=== PATIENT | male | born 1970 | race Caucasian/White ===

== ENCOUNTER 2022-05-08 14:33 | Emergency (ER) | payer OTHER, SELFPAY ==
[2022-05-08 14:48] VITALS: BP 120/69; PULSE 86; O2SAT 95
--- NOTE | 2022-05-08 14:58 | ED.WOUNDLAC ---
HPI - Wound/Laceration General Chief Complaint: General Medical Stated Complaint: [facility] HOME ?'S SKIN INF FROM SELF INFLICTED SCRATCH Time Seen by Provider: 05/08/22 14:48 Source: patient and EMS Mode of arrival: EMS Limitations: no limitations History of Present Illness HPI narrative: 51-year-old male with a history of diabetes, schizoaffective disorder presents with wounds to the right groin and neck. Per report patient often scratches himself in the affected sites. He completed a course of antibiotics on month ago for the same wounds but has continued to scratch at them and staff is worried that maybe infected again. There are no reports of fevers, chills, nausea, vomiting. Related Data Previous Rx's Medication Instructions Recorded diphenhydramine HCl 25 mg capsule 25 mg PO TID PRN itching #30 caps 05/08/22 (Benadryl) doxycycline monohydrate 100 mg 100 mg PO BID #20 tabs 05/08/22 tablet mupirocin 2 % topical ointment 1 appl topical TID #22 grams 05/08/22 Allergies Allergy/AdvReac Type Severity Reaction Status Date / Time lithium Allergy Mild Unknown Verified 05/08/22 14:55 Review of Systems Review of Systems: Yes all other systems are reviewed and are negative Constitutional: Constitutional: Reports no additional constitutional complaints, Denies body ache(s), Denies chills, Denies fever(s), Denies headache(s) and Denies weakness Eyes: Eyes: Reports no additional eye complaints and Denies change in vision ENT: Reports system reviewed and no additional complaints, except as documented, Denies dizziness, Denies headache(s), Denies nasal congestion, Denies nasal discharge and Denies neck pain Cardiovascular: Cardiovascular: Reports no additional cardiovascular complaints, Denies chest pain, Denies leg edema and Denies dyspnea Respiratory: Respiratory: Reports no additional respiratory complaints, Denies cough and Denies dyspnea Gastrointestinal: Gastrointestinal: Reports no additional gastrointestinal complaints, Denies abdominal pain, Denies diarrhea, Denies nausea and Denies vomiting Genitourinary: Genitourinary: Denies urinary incontinence Musculoskeletal: Musculoskeletal: Reports no additional musculoskeletal complaints, Denies back pain, Denies arthralgias, Denies joint swelling, Denies neck pain, Denies numbness and Denies tingling Integumentary/Breasts: Skin/Breast: Reports system reviewed and no additional complaints, except as docu, Reports swelling, Reports erythema, Denies rash and Reports wounds Neurologic: Reports system reviewed and no additional complaints, except as documented, Denies Abnormal speech present, Denies dizziness, Denies headache(s), Denies numbness, Denies tingling and Denies weakness PMFSH Past Medical History Attestation statement: The following information was validated with the patient. Source: old records reviewed and nursing notes reviewed Medical History (Updated 05/08/22 @ 15:09 by Xuan Carreon) Diabetes Orthostatic hypotension Schizoaffective disorder Social History Social History Patient Tobacco Use Status: Current everyday Tobacco user Use of substances other than those prescribed or required for medical reasons: No Advance Directives: No Advance Directives Information Provided: No Physical Exam Vital Signs: Vital Signs: Last Vital Signs Temp 98.3 F 05/08/22 15:03 Pulse 89 05/08/22 15:03 Resp 20 05/08/22 15:03 BP 120/73 05/08/22 15:03 Pulse Ox 97 05/08/22 15:03 O2 Del Method 05/08/22 15:03 BMI result Body Mass Index 28.7 Const: General: cooperative, healthy appearing, comfortable and no acute distress Orientation/consciousness: patient oriented x3 Limitations: no limitations HEENT: Head: Yes normal to inspection Ears: hearing grossly normal bilaterally General nose exam: Normal external nose present Face and sinus: Yes normal facial exam Mouth: Normal oral and palatal mucosa present Throat: Yes posterior oropharynx normal Eyes: General: appearance normal, both eyes and all related structures Pupils: Equal, round and reactive pupils present Neck: Other: Neck: Yes normal visual inspection Chest: Chest palpation & inspection: normal inspection of the chest Resp: Effort & Inspection: normal respiratory effort Auscultation: clear to auscultation bilaterally Cardio: Rate: regular rate Rhythm: regular rhythm Peripheral pulses: Peripheral pulses 2+ throughout GI: Inspection: Yes normal to inspection Palpation (GI): Soft to palpation and nontender Auscultation: normal bowel sounds Back/Spine/Pelvis: Thoracic/Lumbar Spine: thoracic and lumbar spine normal to inspection Skin: General skin exam: no rashes or lesions noted Neuro: General: patient oriented x3, no focal motor deficits and normal sensation to monofilament Cranial nerves: Yes Equal, round and reactive pupils present Cognition (Neuro): normal cognition Speech: No Abnormal speech present Gait exam (Neuro): Normal gait present Motor exam (neuro): 5/5 motor strength present throughout Extrem: Other: No deeper palpable abscess, induration or fluctuance. No surrounding lymphadenopathy General: Yes normal to inspection Course Course Course Narrative: Our special education case manager informed me that staff at the detention wanted to speak to me about the patient. I called and spoke to Nora the [facility] nurse in addition to one of the other nurses on speaker phone. She tells me the patient has been with the detention for approximately 2 months. He has had 2 admissions 1 medical to [facility] from hypotension. His hypotension was thought to be secondary to risperidone and so this was discontinued. They started him on midodrine and salt tablets which she has been taking. It was recommended the patient have blood pressure checks 3 times weekly he has been refusing this. He is also diabetic. They patient is supposed to point a care checks 3 times weekly with his also been refusing this. She reports the patient has had these wounds on his neck for about 1 month. Today the patient became quite agitated yelling for hydrogen peroxide for a wound on his right thigh. The patient then pulled down his pants and exposed himself to staff showing his wound. They tell me the patient scratches at his wounds until they bleed. They are concerned because he smears blood around the detention. He refuses to keep his dressings in place. He also refuses wound care. They are asking for assistance because they are unsure how to help the patient. I will involve our CARE team. Nora can be reached at [phone] during business hours and [phone] (cell) [facility] number is [phone] or [phone] Reevaluation(s) Reevaluation #1: 1700-Placed in physician observation pending disposition MDM - Wound/Laceration MDM Narrative Medical decision making narrative: 51 yo male from detention with history of schizoaffective disorder, diabetes who presents nonhealing sites to the right groin and neck which she has had greater than 1 month. There was some improvement initially with antibiotics but patient completed the course. He has resume scratching the site. He tells me they are very itchy. There is a local area of cellulitis to the right groin. There is no deeper infection or abscess. To the right and left neck there are abrasions with some surrounding erythema. No deeper abscesses or infection. No lymphadenopathy. Patient can benefit from oral antibiotics. Overall nontoxic. Not require additional intervention. Would be beneficial if the patient was to itching at the site. Recommended to detention that he use Benadryl p.r.n., keep sites covered with topical antibiotic ointment and bandages. Medical Records Attestation: I reviewed the patient's medical records. Lab Data Attestation: I reviewed the patient's lab results. Discharge Plan Discharge Clinical Impression: Cellulitis Patient Disposition: Still a Patient Instructions: Cellulitis (ED), Warm Compress or Soak (ED) Additional Instructions: Apply warm compresses to the area Topical antibiotic ointment three times daily to the site AVOID SCRATCHING. Client may need benadryl during the day or at night for itching. Try gloves at nighttime. Prescriptions: New doxycycline monohydrate 100 mg tablet 100 mg PO BID Qty: 20 0RF mupirocin 2 % ointment 1 appl topical TID Qty: 22 0RF diphenhydramine HCl [Benadryl] 25 mg capsule 25 mg PO TID PRN (Reason: itching) Qty: 30 0RF Referrals: ED Physician,Generic [Physician] -
[2022-05-08 15:03] VITALS: BP 120/73; PULSE 89; RESP 20; TEMP 36.8; O2SAT 97; BMI 28.7
--- NOTE | 2022-05-08 15:36 | PC.NURSE ---
wounds/scratches cleaned with saline and bacetracin applied to the affected area
--- NOTE | 2022-05-08 15:41 | PC.NURSE ---
called the long term to let them know that pt is ready for pick but the staff is saying that they can not pick him up do to understaffed
--- NOTE | 2022-05-08 16:00 | PC.NURSE ---
pt's nursing home called back and spoke to Dunia Williamson and is requesting a crisis evaluation before they consider taking the pt back
--- NOTE | 2022-05-08 16:29 | MHC.CARE ---
Willie completed at this time
--- NOTE | 2022-05-08 18:46 | PC.NURSE ---
[facility] at bedside for evluation
== END 2022-05-08 19:45 | disposition home or self-care (01) ==
PROVIDERS: Emergency Provider Emergency Medicine Emergency Medical Services; PCP Family Medicine
DX: L03.314 Cellulitis of groin (principal); S30.811A Abrasion of abdominal wall, initial encounter; S10.91XA Abrasion of unspecified part of neck, initial encounter; X83.8XXA Intentional self-harm by other specified means, initial encounter; F25.9 Schizoaffective disorder, unspecified; I95.9 Hypotension, unspecified; E11.9 Type 2 diabetes mellitus without complications; F17.200 Nicotine dependence, unspecified, uncomplicated; Y93.89 Activity, other specified; Y92.049 Unspecified place in boarding-house as the place of occurrence of the external cause; Y99.9 Unspecified external cause status; Z79.899 Other long term (current) drug therapy
CPT/HCPCS: 99284

== ENCOUNTER 2022-05-14 12:56 | Outpatient (RCR) | payer OTHER, SELFPAY | END 2022-05-19 13:52 | disposition home or self-care (01) | LOC: HO.WCC 12:56 | PROVIDERS: PCP Nurse Practitioner Family; Visit Provider Surgery | DX: R21 Rash and other nonspecific skin eruption (principal); E11.9 Type 2 diabetes mellitus without complications; F17.210 Nicotine dependence, cigarettes, uncomplicated; Z79.84 Long term (current) use of oral hypoglycemic drugs | CPT/HCPCS: 99202 ==